=== PATIENT | male | born 1995 | race Caucasian/White ===

== ENCOUNTER 2017-04-03 04:24 | Emergency (ER) | payer BC, OTHER ==
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
[2017-04-03 05:07] LABS: Basophils # (A) 0.1 k/uL (0-0.2); Basophils % (A) 1 %; CH 32.3; CHCM 35.1; Eosinophils # (A) 0.4 k/uL (0-0.7); Eosinophils % (A) 3 %; HCT 46.8 % (39.0-53.0); HDW 2.17; HGB 15.8 gm/dL (13.0-17.5); Luc # (Auto) 0.23; Luc % (Auto) 2; Lymphocytes # (A) 2.7 k/uL (1.0-4.8); Lymphocytes % (A) 17 %; MCH 31.2 pg (25.0-35.0); MCHC 33.8 g/dL (31.0-37.0); MCV 92.4 fL (80.0-100.0); Mean Platelet Volume 6.8; Monocytes # (A) 0.9 k/uL (0-1.0); Monocytes % (A) 6 %; Neutrophils # (A) 11.1 k/uL (1.3-7.7); Neutrophils % (A) 72 %; RBC 5.07 m/uL (4.30-5.90); RDW 12.4 % (11.5-15.5); WBC 15.4 k/uL (3.8-10.6)
[2017-04-03 05:18] LABS: Amorphous Sediment,Urine Few /hpf; Appearance,Urine Cloudy (Clear); Bilirubin,Urine Negative (Negative); Glucose,Urine (UA) Negative (Negative); Ketones,Urine Negative (Negative); Leukocyte Esterase,Urine Negative (Negative); Nitrite,Urine Negative (Negative); Particle Count 2369; Protein,Urine Negative (Negative); Specific Gravity,Urine 1.006 (1.001-1.035); UA Billing (MACRO vs. MICRO) MICRO; Urobilinogen,Urine <2.0 mg/dL (<2.0)
[2017-04-03 05:19] LABS: ALT 24 U/L (21-72); AST 23 U/L (17-59); Alcohol <10 mg/dL; Alkaline Phosphatase 82 U/L (38-126); Amylase 42 U/L (30-110); Anion Gap 13 mmol/L; Blood Urea Nitrogen 17 mg/dL (9-20); Calcium 9.5 mg/dL (8.4-10.2); Carbon Dioxide 24 mmol/L (22-30); Chloride 105 mmol/L (98-107); Glucose 103 mg/dL (74-99); Magnesium 1.9 mg/dL (1.6-2.3); Non-African American GFR(MDRD) >60 (>60 ml/min/1.73 sqM); Potassium 3.4 mmol/L (3.5-5.1); Sodium 142 mmol/L (137-145); Total Bilirubin 0.9 mg/dL (0.2-1.3); Total Protein 7.4 g/dL (6.3-8.2)
[2017-04-03 05:36] LABS: Creatine Kinase MB 0.7 ng/mL (0.0-2.4)
--- NOTE | 2017-04-03 06:16 | XR ---
EXAM: XR Chest, 2 Views CLINICAL HISTORY: Reason: cough TECHNIQUE: Frontal and lateral views of the chest. COMPARISON: No relevant prior studies available. FINDINGS: Lungs: Unremarkable. No consolidation. Pleural space: Unremarkable. No pneumothorax. Heart: Unremarkable. No cardiomegaly. Mediastinum: Unremarkable. Bones/joints: Unremarkable. IMPRESSION: Normal chest x-rays.
--- NOTE | 2017-04-03 06:35 | CT ---
EXAM: CT Head Without Intravenous Contrast CLINICAL HISTORY: Reason: Pain TECHNIQUE: Axial computed tomography images of the head/brain without intravenous contrast. CTDI is 60.30 mGy and DLP is 1126.50 mGy-cm. This CT exam was performed using one or more of the following dose reduction techniques: automated exposure control, adjustment of the mA and/or kV according to patient size, and/or use of iterative reconstruction technique. COMPARISON: CT head 06/01/2015. FINDINGS: Brain: Unremarkable. No acute hemorrhage. Brainstem: 13 mm hypoattenuation in the maykel felt to be related to skull based artifact. However, given somewhat defined round appearance on sagittal series 7 image 30, consider follow-up MRI to exclude a real finding. Mass effect: No midline shift, herniation, or hydrocephalus. Bones/joints: Unremarkable. Soft tissues: Unremarkable. Sinuses: Unremarkable as visualized. No acute sinusitis. Mastoid air cells: Unremarkable as visualized. No mastoid effusion. IMPRESSION: 13 mm hypoattenuation in the maykel felt to be related to skull based artifact. However, given somewhat defined round appearance on sagittal series 7 image 30, consider follow-up MRI to exclude a real finding. Otherwise, no acute intracranial abnormality.
[2017-04-03 14:00] VITALS: RESP 18
[2017-04-03 14:11] LABS: Basophils # (A) 0.1 k/uL (0-0.2); Basophils % (A) 1 %; CH 31.7; CHCM 35.3; Eosinophils # (A) 0.5 k/uL (0-0.7); Eosinophils % (A) 5 %; HCT 43.5 % (39.0-53.0); HDW 2.25; HGB 15.7 gm/dL (13.0-17.5); Luc # (Auto) 0.17; Luc % (Auto) 2; Lymphocytes # (A) 2.5 k/uL (1.0-4.8); Lymphocytes % (A) 27 %; MCH 32.5 pg (25.0-35.0); MCV 90.3 fL (80.0-100.0); Mean Platelet Volume 6.9; Monocytes # (A) 0.6 k/uL (0-1.0); Monocytes % (A) 7 %; Neutrophils # (A) 5.3 k/uL (1.3-7.7); Neutrophils % (A) 58 %; RBC 4.82 m/uL (4.30-5.90); RDW 12.1 % (11.5-15.5); WBC 9.1 k/uL (3.8-10.6); WBC (Perox) 9.35
[2017-04-03 18:55] VITALS: BP 116/73; PULSE 77; TEMP 98.1
== END 2017-04-03 18:56 ==
LOC: EC 04:24
DX: F23 Brief psychotic disorder (principal); F22 Delusional disorders; R20.0 Anesthesia of skin; F17.210 Nicotine dependence, cigarettes, uncomplicated; Z88.5 Allergy status to narcotic agent
CPT/HCPCS: 36415; 70450; 71020; 80053; 80306; 80320; 81001; 82150; 82550; 82553; 83690; 83735; 84443; 85025; 99285

== ENCOUNTER → 2017-06-30 | Outpatient (CLI) | payer OTHER ==
[2017-06-30 08:11] LABS: Basophils # (A) 0.1 k/uL (0-0.2); Basophils % (A) 1 %; CH 31.4; CHCM 34.1; Eosinophils # (A) 0.2 k/uL (0-0.7); Eosinophils % (A) 3 %; HCT 44.4 % (39.0-53.0); HDW 2.24; HGB 15.4 gm/dL (13.0-17.5); Luc # (Auto) 0.11; Luc % (Auto) 2; Lymphocytes # (A) 2.5 k/uL (1.0-4.8); Lymphocytes % (A) 39 %; MCH 31.9 pg (25.0-35.0); MCHC 34.6 g/dL (31.0-37.0); MCV 92.4 fL (80.0-100.0); Mean Platelet Volume 6.7; Monocytes # (A) 0.5 k/uL (0-1.0); Monocytes % (A) 7 %; Neutrophils # (A) 3.2 k/uL (1.3-7.7); Neutrophils % (A) 49 %; RBC 4.81 m/uL (4.30-5.90); RDW 12.9 % (11.5-15.5); WBC 6.5 k/uL (3.8-10.6); WBC (Perox) 6.64
[2017-06-30 09:03] LABS: ALT 36 U/L (21-72); AST 21 U/L (17-59); Alkaline Phosphatase 71 U/L (38-126); Anion Gap 10 mmol/L; Blood Urea Nitrogen 17 mg/dL (9-20); Carbon Dioxide 22 mmol/L (22-30); Chloride 110 mmol/L (98-107); Non-African American GFR(MDRD) >60 (>60 ml/min/1.73 sqM); Potassium 4.3 mmol/L (3.5-5.1); Sodium 142 mmol/L (137-145)
== END | disposition home or self-care (01) ==
LOC: LABWHC1 07:50
PROVIDERS: ATTEND Psychiatry & Neurology Psychiatry
DX: F23 Brief psychotic disorder (principal)
CPT/HCPCS: 36415; 80051; 80164; 82565; 84075; 84450; 84460; 84520; 85025

== ENCOUNTER 2018-06-08 04:19 | Emergency (ER) | payer SELFPAY ==
[2018-06-08] MEDS ORDERED: DIPH,PERTUS(ACELL)TETVAC-LF 0.5 ML VIAL IM ONE (04:43)
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
--- NOTE | 2018-06-08 05:38 | XR ---
EXAM: XR Left Foot Complete, 3 or More Views CLINICAL HISTORY: ITS.REASON XR Reason: Pain TECHNIQUE: Frontal, lateral and oblique views of the left foot. COMPARISON: No relevant prior studies available. FINDINGS/IMPRESSION: No acute fracture or dislocation. Suspected soft tissue injury. Subtle, small densities in the soft tissues of the plantar aspect of the foot at the level of the anterior calcaneus. This could be artifact or possibly calcification. Correlate for tiny foreign bodies.
[2018-06-08 06:18] LABS: Amphetamine Screen,Urine Detected (NotDetected); Barbiturate Screen,Urine Not Detected (NotDetected); Benzodiazepines Screen,Urine Detected (NotDetected); Cocaine Screen,Urine Not Detected (NotDetected); Methadone Screen, Urine Not Detected (NotDetected); Opiate Screen,Urine Not Detected (NotDetected); Oxycodone Screen, Urine Not Detected (NotDetected); Phencyclidine Screen,Urine Not Detected (NotDetected); Tricyclic Antidepressant,Urine Not Detected (NotDetected); Urn Cannabinoid Scrn Detected (NotDetected)
[2018-06-08 07:03] VITALS: BP 118/84; PULSE 82; RESP 18; TEMP 98
== END 2018-06-08 07:12 | disposition home or self-care (01) ==
LOC: EC 04:19
DX: S90.812A Abrasion, left foot, initial encounter (principal); F31.9 Bipolar disorder, unspecified; F90.9 Attention-deficit hyperactivity disorder, unspecified type; F17.200 Nicotine dependence, unspecified, uncomplicated; Z23 Encounter for immunization; Z79.899 Other long term (current) drug therapy; Z88.5 Allergy status to narcotic agent; W26.8XXA Contact with other sharp object(s), not elsewhere classified, initial encounter
CPT/HCPCS: 80306; 82075; 90471; 90715; 99284

== ENCOUNTER 2018-06-08 09:33 | Inpatient (IN) | payer OTHER ==
--- NOTE | 2018-06-08 10:02 | ED ---
General Adult HPI - General Chief complaint: Psychiatric Symptoms Stated complaint: mental health Time Seen by Provider: 06/08/18 09:35 Source: patient, RN notes reviewed Mode of arrival: ambulatory Limitations: no limitations - History of Present Illness Initial comments: This is a 23-year-old male who presents emergency Department because his mother told him to come back to the emergency department. Patient's states she was here last night and discharged about 2 hours ago and went home and got into an argument with his mother and she told him he needs to go back to the hospital so he did. Patient tells me he has no complaints he denies being suicidal or homicidal he denies feeling unsafe. Patient states he has no headache he denies numbness weakness. Patient denies any chest pain palpitations difficulty breathing or shortness of breath. Patient denies any abdominal pain patient denies any nausea vomiting diarrhea. Patient denies any headache. Patient states all he needs is sleep. - Related Data Home Medications Medication Instructions Recorded Confirmed Dextroamphetamine/Amphetamine 20 mg PO QAM 06/08/18 06/08/18 [Adderall Xr] buPROPion HCL [Wellbutrin Sr] 150 mg PO BID 06/08/18 06/08/18 Allergies Allergy/AdvReac Type Severity Reaction Status Date / Time codeine AdvReac Nausea & Verified 06/08/18 09:36 Vomiting Review of Systems ROS Statement: Those systems with pertinent positive or pertinent negative responses have been documented in the HPI. ROS Other: All systems not noted in ROS Statement are negative. Past Medical History Past Medical History: No Reported History History of Any Multi-Drug Resistant Organisms: None Reported Past Surgical History: No Surgical Hx Reported Past Psychological History: ADD/ADHD Smoking Status: Current every day smoker Past Alcohol Use History: Occasional Past Drug Use History: None Reported General Exam - General Exam Comments Initial Comments: GENERAL: Patient is well-developed and well-nourished. Patient is nontoxic and well- hydrated and is in no acute distress. ENT: Neck is soft and supple. No significant lymphadenopathy is noted. Oropharynx is clear. Moist mucous membranes. Neck has full range of motion without eliciting any pain. EYES: The sclera were anicteric and conjunctiva were pink and moist. Extraocular movements were intact and pupils were equal round and reactive to light. Eyelids were unremarkable. PULMONARY: Unlabored respirations. Good breath sounds bilaterally. No audible rales rhonchi or wheezing was noted. CARDIOVASCULAR: There is a regular rate and rhythm without any murmurs gallops or rubs. ABDOMEN: Soft and nontender with normal bowel sounds. SKIN: Skin is clear with no lesions or rashes and otherwise unremarkable. NEUROLOGIC: Patient is alert and oriented x3. Cranial nerves II through XII are grossly intact. Motor and sensory are also intact. Normal speech, volume and content. Symmetrical smile. MUSCULOSKELETAL: Normal extremities with adequate strength and full range of motion. LYMPHATICS: No significant lymphadenopathy is noted PSYCHIATRIC: Patient does have a flat affect but he denies suicidal or homicidal ideations. Patient states he feels completely safe leaving and going home Limitations: no limitations Course Vital Signs 06/08/18 09:35 Temperature 98.1 F Pulse Rate 75 Respiratory 20 Rate Blood Pressure 143/92 O2 Sat by Pulse 100 Oximetry Medical Decision Making - Medical Decision Making I had [facility] reevaluate the patient and when they spoke with them he was preoccupied with religious he was paranoid and hearing voices. They decided to admit the patient. I certified the patient to be admitted. Disposition Clinical Impression: Psychosis Disposition: ADMITTED IP TO THIS HOSP Referrals: Charu Jimenez MD [Primary Care Provider] - 1-2 days Time of Disposition: 12:48
[2018-06-08] MEDS ORDERED: LORazepam 2 MG/ML INJ IM STA (14:45)
[2018-06-08] MEDS ORDERED: ZIPRASIDONE 20 MG VIAL IM PRN (14:51)
[2018-06-08] MEDS ORDERED: MAGNESIUM HYDROXIDE 2,400 MG/10 ML CUP PO PRN (14:51)
[2018-06-08] MEDS ORDERED: LORazepam 2 MG/ML INJ IM PRN (14:54)
[2018-06-08] MEDS ORDERED: MAG HYDROX/AL HYDROX/SIMETH 30 ML CUP PO PRN (14:57)
[2018-06-08] MEDS ORDERED: LORazepam 1 MG TAB PO PRN (15:02)
[2018-06-08] MEDS ORDERED: ACETAMINOPHEN TAB 325 MG TAB PO PRN (15:05)
[2018-06-08] MEDS ORDERED: LORazepam 1 MG TAB PO SCH (21:00)
[2018-06-09 08:27] LABS: Basophils % (A) 0 %; Eosinophils % (A) 1 %; HCT 48.5 % (39.0-53.0); HGB 16.1 gm/dL (13.0-17.5); Lymphocytes # (A) 2.1 k/uL (1.0-4.8); Lymphocytes % (A) 26 %; MCH 30.1 pg (25.0-35.0); MCHC 33.1 g/dL (31.0-37.0); MCV 90.9 fL (80.0-100.0); Mean Platelet Volume 7.1; Monocytes # (A) 0.7 k/uL (0-1.0); Monocytes % (A) 8 %; Neutrophils % (A) 62 %; Platelet Count 255 k/uL (150-450); RBC 5.34 m/uL (4.30-5.90); RDW 12.7 % (11.5-15.5); WBC 8.1 k/uL (3.8-10.6)
[2018-06-09 08:41] LABS: ALT 32 U/L (21-72); AST 34 U/L (17-59); Albumin 4.7 g/dL (3.5-5.0); Alkaline Phosphatase 74 U/L (38-126); Anion Gap 10 mmol/L; Blood Urea Nitrogen 10 mg/dL (9-20); Calcium 10.1 mg/dL (8.4-10.2); Carbon Dioxide 25 mmol/L (22-30); Chloride 108 mmol/L (98-107); Cholesterol 160 mg/dL (<200); Glucose 99 mg/dL (74-99); HDL Cholesterol 43 mg/dL (40-60); LDL Cholesterol,Calculated 102 mg/dL (0-99); Potassium 4.4 mmol/L (3.5-5.1); Sodium 143 mmol/L (137-145); Total Bilirubin 0.9 mg/dL (0.2-1.3); Total Protein 7.5 g/dL (6.3-8.2); Triglycerides 76 mg/dL (<150)
[2018-06-09] MEDS ORDERED: NICOTINE 14MG/24HR PATCH TRANSDERM SCH (09:00)
[2018-06-09] MEDS: NICOTINE POLACRILEX 2 MG GUM BUCCAL PRN (11:08)
[2018-06-09] MEDS: ARIPiprazole 10 MG TAB PO SCH (11:08)
--- NOTE | 2018-06-09 11:17 | P.HP ---
Psychiatric H&P - . History & Physical: Allergies Allergy/AdvReac Type Severity Reaction Status Date / Time codeine AdvReac Nausea & Verified 06/08/18 09:36 Vomiting Vital Signs Temp 98.6 F 06/09/18 01:00 Pulse 95 06/09/18 01:00 Resp 16 06/09/18 01:00 BP 130/81 06/09/18 01:00 Pulse Ox 98 06/08/18 14:53 Intake & Output 06/08/18 06/09/18 06/09/18 18:59 06:59 18:59 Weight 77.111 kg Laboratory Last Values WBC 8.1 k/uL (3.8-10.6) 06/09/18 08:06 RBC 5.34 m/uL (4.30-5.90) 06/09/18 08:06 Hgb 16.1 gm/dL (13.0-17.5) 06/09/18 08:06 Hct 48.5 % (39.0-53.0) 06/09/18 08:06 MCV 90.9 fL (80.0-100.0) 06/09/18 08:06 MCH 30.1 pg (25.0-35.0) 06/09/18 08:06 MCHC 33.1 g/dL (31.0-37.0) 06/09/18 08:06 RDW 12.7 % (11.5-15.5) 06/09/18 08:06 Plt Count 255 k/uL (150-450) 06/09/18 08:06 Neutrophils % 62 % 06/09/18 08:06 Lymphocytes % 26 % 06/09/18 08:06 Monocytes % 8 % 06/09/18 08:06 Eosinophils % 1 % 06/09/18 08:06 Basophils % 0 % 06/09/18 08:06 Neutrophils # 5.0 k/uL (1.3-7.7) 06/09/18 08:06 Lymphocytes # 2.1 k/uL (1.0-4.8) 06/09/18 08:06 Monocytes # 0.7 k/uL (0-1.0) 06/09/18 08:06 Eosinophils # 0.0 k/uL (0-0.7) 06/09/18 08:06 Basophils # 0.0 k/uL (0-0.2) 06/09/18 08:06 Sodium 143 mmol/L (137-145) 06/09/18 08:06 Potassium 4.4 mmol/L (3.5-5.1) 06/09/18 08:06 Chloride 108 mmol/L (98-107) H 06/09/18 08:06 Carbon Dioxide 25 mmol/L (22-30) 06/09/18 08:06 Anion Gap 10 mmol/L 06/09/18 08:06 BUN 10 mg/dL (9-20) 06/09/18 08:06 Creatinine 0.74 mg/dL (0.66-1.25) 06/09/18 08:06 Est GFR (CKD-EPI)AfAm >90 (>60 ml/min/1.73 sqM) 06/09/18 08:06 Est GFR (CKD-EPI)NonAf >90 (>60 ml/min/1.73 sqM) 06/09/18 08:06 Glucose 99 mg/dL (74-99) 06/09/18 08:06 Calcium 10.1 mg/dL (8.4-10.2) 06/09/18 08:06 Total Bilirubin 0.9 mg/dL (0.2-1.3) 06/09/18 08:06 AST 34 U/L (17-59) 06/09/18 08:06 ALT 32 U/L (21-72) 06/09/18 08:06 Alkaline Phosphatase 74 U/L (38-126) 06/09/18 08:06 Total Protein 7.5 g/dL (6.3-8.2) 06/09/18 08:06 Albumin 4.7 g/dL (3.5-5.0) 06/09/18 08:06 Triglycerides 76 mg/dL (<150) 06/09/18 08:06 Cholesterol 160 mg/dL (<200) 06/09/18 08:06 LDL Cholesterol, Calc 102 mg/dL (0-99) H 06/09/18 08:06 HDL Cholesterol 43 mg/dL (40-60) 06/09/18 08:06 TSH 1.120 mIU/L (0.465-4.680) 06/09/18 08:06 06/09/18 11:05 IDENTIFYING DATA: This patient is a 23-year-old single male who was admitted to the mental health unit through the emergency room for acute symptoms of psychosis. HPI: The patient presents with a petition completed by his mother stating "paranoid no sleep hearing voices against him distractive verbally aggressive smashing things and home found missing from first visit from hospital walk to [place]/jessica, found my son suggested bring him back to hospital." In reviewing the psychiatric nurses documentation the patient's endorsed auditory hallucinations and reported that he felt his life had been sucked away. With me this morning the patient is more guarded and less forthright in describing these symptoms. Today he states he does not experience auditory hallucinations and never has. He endorses visual hallucinations in the forms of "patterns and colors". He states that he will have an unsettled feeling that people are messing with him or trying to do something to him. His mother states that he went to the ER because he thought he had been shot. He describes poor sleep his mother states that he has not slept in 3 days. She states that when he has these episodes he will become more psychotic appearing. He describes his appetite as being low but improving. He is reporting no suicidal or homicidal ideation intent or plan. He reports no frequent symptoms of anxiety and no panic attacks although he states when he came to the ER he felt like his chest was hurting. He does feel as though he has had episodes that are at least hypomanic. There are firearms in the home. PAST PSYCHIATRIC HISTORY: Since his second psychiatric admission the first was at [facility] approximately one year ago and he was there for approximate 2 weeks. He was placed on Prolixin, Depakote, Cogentin. He states he felt terrible on the Prolixin and discontinued it after discharge and his mother agrees it was causing several side effects. He has gotten an Adderall prescription from his primary care physician. He was previously on Wellbutrin. No history of suicide attempts but he states he did have suicidal thoughts while in during the side effects of Prolixin. PMH: None reported ALLERGIES: Codeine MEDICATIONS: As above CHEMICAL DEPENDENCY HISTORY: He reports using alcohol 1-2 drinks every other day and heavier on the weekend, he uses marijuana daily, he reports no other use of illicit drugs. He was in rehab once after an OWI charge FAMILY PSYCHIATRIC HISTORY: His maternal uncle was known to have schizophrenia, his mother is known to have bipolar disorder, his younger brother has autism and ADHD, no suicides in the family FAMILY CHEMICAL DEPENDENCY HISTORY: None reported SOCIAL HISTORY: The patient is 23 years old a single he has no children he resides with his mother and younger brother. He does have a 21-year-old sister who has moved out of the home. 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 No history of service. Legal history he was arrested for an OWI when he was 20 years old, abuse history none. Hobbies include hunting fishing and playing his guitar. MENTAL STATUS EXAM: The patient is a 23-year-old male appearing his stated age, he has longer hair that he has pulled back. He is dressed in his own clothing. He is cooperative and easily directable. He maintains a constricted to blunted affect throughout the session with little change in affect. He does have spontaneous speech. 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 He reports no suicidal or homicidal ideation intent or plan. He endorses no auditory hallucinations currently but did last evening. He endorses recent visual hallucinations. He does still have a feeling as though people are "messing with me" but doesn't specify who or how. He demonstrates no verbal or physical aggressiveness. He demonstrates no abnormal involuntary movements. He is oriented to person place and date. He is able to name the days the week backwards. He demonstrates no tangential thinking loose associations or flight of ideas he does not appear manic at this time. STRENGTHS/WEAKNESSES: Strengths: Housing, support from family, reported employment weaknesses current psychiatric symptoms with no outpatient care INTELLECTUAL FUNCTIONING: Average IMPRESSIONS: [] 1. Psychosis unspecified, rule out schizoaffective disorder bipolar type versus bipolar 1 disorder manic with psychosis, cannabis use disorder. PLAN: The patient's been admitted to the mental health unit for acute symptoms of psychosis. I did complete a second clinical certificate. We reviewed his presenting symptoms and treatment options. I was able to speak with the patient 's mother with his expressed permission. We decided to initiate Abilify 10 mg daily with a plan of titrating the dose further if needed. He will be seen by social work to complete a psychosocial assessment he will be seen by internal medicine for routine history and physical exam. We will monitor him for safety and encourage his full participation in the milieu.
--- NOTE | 2018-06-09 14:58 | P.CONS ---
History of Present Illness - Reason for Consult Medical clearance - History of Present Illness 23-year-old pleasant gentleman admitted for acute psychosis denied any fever chills nausea vomiting chest pain area. Patient says he smokes 3 packs of cigarettes per day chest exam is clear. Denied any IV drug use does use marijuana. Denied any alcohol abuse. Review of Systems REVIEW OF SYSTEMS: CONSTITUTIONAL: No fever, no malaise, no fatigue. HEENT: No recent visual problems or hearing problems. Denied any sore throat. CARDIOVASCULAR: No chest pain, orthopnea, PND, no palpitations, no syncope. PULMONARY: No shortness of breath, no cough, no hemoptysis. GASTROINTESTINAL: No diarrhea, no nausea, no vomiting, no abdominal pain. Normoactive bowel sounds. NEUROLOGICAL: No headaches, no weakness, no numbness. HEMATOLOGICAL: Denies any bleeding or petechiae. GENITOURINARY: Denies any burning micturition, frequency, or urgency. MUSCULOSKELETAL/RHEUMATOLOGICAL: Denies any joint pain, swelling, or any muscle pain. ENDOCRINE: Denies any polyuria or polydipsia. The rest of the 14-point review of systems is negative. Past Medical History Past Medical History: No Reported History History of Any Multi-Drug Resistant Organisms: None Reported Past Surgical History: No Surgical Hx Reported Past Psychological History: ADD/ADHD Smoking Status: Current every day smoker Past Alcohol Use History: Occasional Past Drug Use History: None Reported Medications and Allergies Home Medications Medication Instructions Recorded Confirmed Type Dextroamphetamine/Amphetamine 20 mg PO QAM 06/08/18 06/08/18 History [Adderall Xr] buPROPion HCL [Wellbutrin Sr] 150 mg PO BID 06/08/18 06/08/18 History Allergies Allergy/AdvReac Type Severity Reaction Status Date / Time codeine AdvReac Nausea & Verified 06/08/18 09:36 Vomiting Physical Exam Vitals: Vital Signs Temp Pulse Resp BP 06/09/18 01:00 98.6 F 95 16 130/81 06/08/18 15:31 98.4 F 66 18 135/79 PHYSICAL EXAMINATION: GENERAL: The patient is alert and oriented x3, not in any acute distress. Well developed, well nourished. HEENT: Pupils are round and equally reacting to light. EOMI. No scleral icterus. No conjunctival pallor. Normocephalic, atraumatic. No pharyngeal erythema. No thyromegaly. CARDIOVASCULAR: S1 and S2 present. No murmurs, rubs, or gallops. PULMONARY: Chest is clear to auscultation, no wheezing or crackles. ABDOMEN: Soft, nontender, nondistended, normoactive bowel sounds. No palpable organomegaly. MUSCULOSKELETAL: No joint swelling or deformity. EXTREMITIES: No cyanosis, clubbing, or pedal edema. NEUROLOGICAL: Gross neurological examination did not reveal any focal deficits. SKIN: No rashes. Results CBC & Chem 7: 06/09/18 08:06 06/09/18 08:06 Labs: Abnormal Lab Results - Last 24 Hours (Table) 06/09/18 Range/Units 08:06 Chloride 108 H (98-107) mmol/L LDL Cholesterol, Calc 102 H (0-99) mg/dL Assessment and Plan Plan: -Acute psychosis: Management as per primary service -Nicotine abuse and marijuana use: Counseling was provided Patient is medically stable we'll sign off at this point of time was back if needed.
[2018-06-09 17:07] LABS: Appearance,Urine Clear (Clear); Bilirubin,Urine Negative (Negative); Blood,Urine Negative (Negative); Color,Urine Colorless; Glucose,Urine (UA) Negative (Negative); Ketones,Urine Negative (Negative); Leukocyte Esterase,Urine Negative (Negative); Nitrite,Urine Negative (Negative); PH, Urine 6.5 (5.0-8.0); Protein,Urine Negative (Negative); Specific Gravity,Urine 1.002 (1.001-1.035); Urobilinogen,Urine <2.0 mg/dL (<2.0)
[2018-06-09 19:42] LABS: Hemoglobin A1C 4.8 % (4.0-6.0)
[2018-06-09] MEDS: traZODone HCL 100 MG TAB PO PRN (21:10)
[2018-06-09] MEDS: MAG HYDROX/AL HYDROX/SIMETH 30 ML CUP PO PRN (21:43)
[2018-06-10] MEDS: NICOTINE POLACRILEX 2 MG GUM BUCCAL PRN ×2 (08:46→20:44)
[2018-06-10] MEDS: ARIPiprazole 10 MG TAB PO SCH (08:46)
--- NOTE | 2018-06-10 11:20 | P.PN ---
Progress Note - Text Interval history: The patient is found in his room he follows me to an interview room. He reports that he slept well last night with use of trazodone and estimates 6-8 hours. He states his appetite is not great but he did eat. He is primarily focused on wanting to be discharged. He reports feelings of grief and is briefly tearful in discussing the of his father and today would've been his father's birthday. The patient has been attending groups he demonstrates no agitated behavior while here per staff. He did meet with his court appointed attorney general and signed a deferral agreement for treatment. Mental status exam: The patient is alert he is dressed in his own clothing he has long curly hair, he seated calmly. Eye contact is appropriate affect is bland consistently with the exception of brief tearfulness. He states his mood is "alright". He denies having any suicidal or homicidal ideation intent or plan. He denies having any auditory or visual hallucinations or specific delusions. Again he could be underreporting symptoms to facilitate a discharge. Although he denies having any symptoms there is still a bizarre quality about his affect at times and at other times he does appear to be preoccupied. He is able to provide spontaneous speech he is able to provide some linear answers. He demonstrates no tangential thinking loose associations or flight of ideas. Insight and judgment limited. He remains oriented to person place and date. He demonstrates no abnormal involuntary movements he demonstrates no verbal or physical aggressiveness. Plan: The patient will continue on the Abilify 10 mg daily we will consider titrating further if needed. We will monitor him for safety and encourage his full participation in the milieu. He anticipates visiting with his mother this evening and we will await the outcome of that visit. He requires continued hospitalization to continue evaluating and treating his symptoms of psychosis.
[2018-06-10] MEDS: traZODone HCL 100 MG TAB PO PRN (22:21)
[2018-06-11] MEDS: ARIPiprazole 10 MG TAB PO SCH (08:29)
--- NOTE | 2018-06-11 10:17 | P.PN ---
Progress Note - Text Interval history: The patient is found in the library. He reports that he had a visit from his cousin and his mother last evening. He states overall the visit was good but they discussed his symptoms/behavior prior to this admission. He elaborates on some of his behaviors prior to being admitted. He reports becoming angry and smashing things at home including a guitar. He is not able to specify why he was angry but just stated "I was trying to figure out what was going on with me". He expresses some remorse regarding those actions. We discussed his medication his questions were answered. He is amenable to allowing me titrate the dose further. He states that he slept well last night but the trazodone dose may be too strong. We discussed taking the medication earlier in the evening as well. Mental status exam: The patient is alert he is seated calmly in the chair, he is dressed in his own clothing. His eye contact is appropriate he reports his mood is "bubbly". Speech is fluent non-pressured somewhat spontaneous. He continues to appear somewhat distracted during the conversation. He endorses no auditory or visual hallucinations. He indicates that he feels safe and has no paranoid or persecutory thoughts. Again it does appear that he is underreporting symptoms. He demonstrates no verbal or physical aggressiveness. He demonstrates no abnormal involuntary movements. Affect remains bland. Insight and judgment limited. He remains oriented to person place and date. Plan: The patient will continue on the Abilify we will titrate the dose to 15 mg daily. We will continue to monitor him for safety and encourage his continued participation in the milieu. Vital signs reviewed.
[2018-06-11] MEDS: NICOTINE POLACRILEX 2 MG GUM BUCCAL PRN (11:53)
[2018-06-11] MEDS: traZODone HCL 50 MG TAB PO PRN (21:05)
[2018-06-12] MEDS: NICOTINE POLACRILEX 2 MG GUM BUCCAL PRN (09:13)
[2018-06-12] MEDS: ARIPiprazole 15 MG TAB PO SCH (09:14)
--- NOTE | 2018-06-12 14:51 | P.PN ---
Progress Note - Text Progress Note Date: 06/12/18 Diagnosis: Unspecified psychotic disorder, rule out schizoaffective disorder bipolar type versus bipolar 1 disorder manic with psychosis, cannabis use disorder Interim History: I reviewed the medical record, interviewed the patient and discuss his treatment and treatment plan during team meeting. He denied specific problems or concerns. He denied side effects to the increased dose of Abilify (15 mg). He feels depressed but denied having thoughts of or suicide. He denied experiencing such psychotic symptoms as ideas reference, thought insertion, thought broadcasting, thought control or auditory and/or visual hallucinations. We reviewed the circumstances that led to this admission and the only problem that he can remember was feeling paranoid and having difficulty concentrating. Mental Status Exam: He presented as a casually groomed, tall, thin male with this reddish hair pulled back in a ponytail. He made eye contact and attended to the interview. He had no prominent physical abnormalities. He had a blunted facial expression. He was alert and oriented to person, place and time. He showed slight psychomotor retardation but no abnormal movements. He had a normal gait and station. His speech was spontaneous with normal rate, rhythm and volume. He had no articulation difficulties. His affect was blunted but stable and appropriate. He denied suicidal ideation or wishes. He denied homicidal ideation. He denied feeling hopeless, helpless or worthless. He ruminated about the circumstances that led to this hospitalization but did not express clear ideas reference, paranoid ideation or delusional thoughts. His thinking was abstract and associations were coherent, logical and goal directed. He did not express clang associations, perseverations or neologisms. He denied hallucinations and did not appear to be responding to internal stimuli. Plan: Continue inpatient psychiatric hospitalization. Continue Abilify 15 mg daily. Encourage continued participation in therapeutic groups and activities. Continue safety precautions. Evaluate clinical status response to treatment daily basis.
[2018-06-12] MEDS: traZODone HCL 50 MG TAB PO PRN (20:15)
[2018-06-13] MEDS: ARIPiprazole 15 MG TAB PO SCH (08:46)
[2018-06-13] MEDS: NICOTINE POLACRILEX 2 MG GUM BUCCAL PRN (09:34)
--- NOTE | 2018-06-13 21:34 | P.PN ---
Progress Note - Text Progress Note Date: 06/13/18 IDENTIFICATION DATA 23-year-old male with schizoaffective disorder admitted for acute symptoms of psychosis. INTERVAL HISTORY: He reports being complaint with his prescribed medication. Denies side effects. He reports medications help him to stabilize his moods. He denies current symptoms of psychosis. He reports good sleep and appetite. MENTAL STATUS EXAMINATION: Patient is 23 year old man appears in fair grooming and hygiene. speech and thought process are limited. mood is euthymic and affect flat. denies current auditory or visual hallucinations. denies paranoia. is alert and oriented X 4. insight and judgment are limited. denies current suicidal or homicidal ideations. ASSESSMENT AND PLAN: Continue current treatment.
[2018-06-13] MEDS: traZODone HCL 50 MG TAB PO PRN (22:39)
[2018-06-14] MEDS: MAG HYDROX/AL HYDROX/SIMETH 30 ML CUP PO PRN (01:27)
[2018-06-14] MEDS: ARIPiprazole 15 MG TAB PO SCH (08:17)
[2018-06-14] MEDS: NICOTINE POLACRILEX 2 MG GUM BUCCAL PRN (08:36)
--- NOTE | 2018-06-14 14:48 | P.PN ---
Progress Note - Text Progress Note Date: 06/14/18 23-year-old male with schizoaffective disorder admitted for acute symptoms of psychosis. INTERVAL HISTORY: When asked how he is doing , he stated Blah . When asked to explain further he stated he does not know how to explain. When asked if he is feeling sad or hopeless, he stated yes and no. He reports abilify helps him stabilize his moods. He reports being complaint with his prescribed medication. Denies side effects He denies current symptoms of psychosis. He reports good sleep and appetite. He reports participating in unit groups. No behavior problems reported. MENTAL STATUS EXAMINATION: Patient is 23 year old man appears in fair grooming and hygiene. speech and thought process are limited. mood is euthymic and affect is flat. denies current auditory or visual hallucinations. denies paranoia. is alert and oriented X 4. insight and judgment are limited. denies current suicidal or homicidal ideations. ASSESSMENT AND PLAN: Will increase the dose of abilfy to 20mg po qday.
[2018-06-14] MEDS: traZODone HCL 50 MG TAB PO PRN (21:18)
--- NOTE | 2018-06-15 10:34 | P.PN ---
Progress Note - Text Interval history: The patient is found in the hallway he follows me to an interview room. He reports that his moods improving. His Abilify was titrated to 20 mg just yesterday [facility]. He has no questions or concerns regarding his medication. He is participating in a support meeting involving his mother this morning. Mental status exam: The patient is alert he is dressed in his own clothing. His hair is pulled back he has shaved his roberts. He reports his mood is improving. He denies having any suicidal or homicidal ideation intent or plan. He is reporting no auditory or visual hallucinations he is endorsing no specific delusions. He demonstrates no abnormal involuntary movements, he demonstrates no verbal or physical aggressiveness. Insight and judgment improving. Affect is constricted as the session progressed he demonstrated a small range of expression. Plan: The patient will continue on his current psychotropic medication. We will await the results of his support meeting today. We will evaluate how he is responding to the Abilify at the 20 mg dose. Consider discharging him tomorrow if clinically appropriate.
[2018-06-15] MEDS: NICOTINE POLACRILEX 2 MG GUM BUCCAL PRN ×3 (12:30→20:15)
[2018-06-15] MEDS: traZODone HCL 50 MG TAB PO PRN (20:55)
[2018-06-16] MEDS: NICOTINE POLACRILEX 2 MG GUM BUCCAL PRN ×2 (00:27→08:24)
[2018-06-16 06:32] VITALS: BP 122/80; PULSE 65; RESP 16; TEMP 97.7
--- NOTE | 2018-06-16 09:38 | P.DS ---
Providers Date of admission: 06/08/18 14:46 Expected date of discharge: 06/16/18 Attending physician: Toby Francis Consults: 06/08/18 14:51 Consult Physician Routine Consulting Provider: Armaan Ortega Consult Reason/Comments: H&P for mental health Do you want consulting provider notified?: Yes Primary care physician: Charu Jimenez - Discharge Diagnosis(es) (1) Unspecified psychosis Current Visit: Yes Status: Acute Priority: High (2) Cannabis use disorder, mild, abuse Current Visit: Yes Status: Acute Priority: Medium Hospital Course: Brief summary of admission note: This patient is a 23-year-old single male who was admitted to the mental health unit through the emergency room for acute symptoms of psychosis. The patient was petition by his mother for demonstrating paranoid and aggressive behavior. In the emergency room the patient had endorsed experiencing auditory hallucinations. He endorsed visual hallucinations with his initial visit on the mental health unit. He had an unsettling feeling that people were "messing with me". Reportedly had not slept in 3 days and was becoming more agitated. For full history please refer to my psychiatric evaluation dated 06/01/2018. Summary of hospital course: The patient was admitted to the mental health unit on a petition and clinical certificate. I did complete a second clinical certificate we reviewed the patient's presenting symptoms and medication options. We decided to initiate Abilify and titrated the dose ultimately to 20 mg daily. The patient did attend groups he demonstrated no agitated behavior. He did meet with an bankruptcy attorney as part of a deferral conference and he signed the deferral agreement. The patient participated in a support meeting involving his mother yesterday. Social work notes from that interaction were reviewed. The patient did process some of his grief reaction regarding his father's recent . His symptoms of psychosis have stabilized. And he is appropriate for transition outpatient care. He was seen by internal medicine for routine history and physical exam. Mental status exam: The patient is alert he is dressed in his own clothing hygiene grooming are adequate. He has long curly hair. Eye contact is good speech is fluent spontaneous nonpressured. He demonstrates an appropriate range of affect during the conversation. He reports no hopelessness thinking no suicidal or homicidal ideation intent or plan. He is endorsing no paranoid or persecutory thinking at this time. He is seated calmly and is demonstrating no evidence of psychosis. Thought process is linear he demonstrates no tangential thinking loose associations or flight of ideas. He does not appear hypomanic or manic. He demonstrates no verbal or physical aggressiveness he demonstrates no abnormal involuntary movements. Insight and judgment have improved. He remains oriented to person place and date. Impressions 1. Psychosis unspecified, rule out schizoaffective disorder bipolar type versus bipolar 1 disorder manic with psychosis, cannabis use disorder 2. Grief reaction due to recent of father Plan: The patient will be discharged from the mental health unit today to return home with his family. He will continue on Abilify 20 mg daily. He will follow up with [facility] for outpatient services. He is instructed to abstain from any use of alcohol marijuana or any other illicit drug. He is not interested in participating in inpatient chemical dependency treatment regarding his cannabis use. This will be addressed further as an outpatient. There is no imminent safety risk he is appropriate for transition to outpatient care. He is instructed to return to the hospital for any acute safety concerns. Patient Condition at Discharge: Stable Plan - Discharge Summary New Discharge Prescriptions: New ARIPiprazole [Abilify] 20 mg PO DAILY #30 tab Nicotine Polacrilex [Nicorette] 2 mg BUCCAL Q2HR PRN #30 gum PRN Reason: Nicotine Cravings traZODone HCL [Desyrel] 50 mg PO HS PRN #30 tab PRN Reason: Insomnia Discontinued buPROPion HCL [Wellbutrin Sr] 150 mg PO BID Dextroamphetamine/Amphetamine [Adderall Xr] 20 mg PO QAM Discharge Medication List ARIPiprazole [Abilify] 20 mg PO DAILY #30 tab 06/16/18 [Rx] Nicotine Polacrilex [Nicorette] 2 mg BUCCAL Q2HR PRN #30 gum 06/16/18 [Rx] traZODone HCL [Desyrel] 50 mg PO HS PRN #30 tab 06/16/18 [Rx] Follow up Appointment(s)/Referral(s): Charu Jimenez MD [Primary Care Provider] - 1-2 days
== END 2018-06-16 13:05 | disposition home or self-care (01) | DRG 885 ==
LOC: EC 09:33 → 3MHU 14:46
PROVIDERS: ADMIT Psychiatry & Neurology Psychiatry; ATTEND Psychiatry & Neurology Psychiatry
DX: F29 Unspecified psychosis not due to a substance or known physiological condition (principal); F12.10 Cannabis abuse, uncomplicated; F17.210 Nicotine dependence, cigarettes, uncomplicated; F43.20 Adjustment disorder, unspecified; F90.9 Attention-deficit hyperactivity disorder, unspecified type; Z88.5 Allergy status to narcotic agent; Z81.8 Family history of other mental and behavioral disorders; Z79.899 Other long term (current) drug therapy; Z71.6 Tobacco abuse counseling; Z71.51 Drug abuse counseling and surveillance of drug abuser
CPT/HCPCS: 80053; 80061; 81003; 82075; 83036; 84443; 85025; 96372; 99285

== ENCOUNTER 2019-05-22 04:01 | Emergency (ER) | payer OTHER ==
[2019-05-22 07:15] VITALS: BP 132/86; PULSE 77; RESP 16; TEMP 97.1
--- NOTE | 2019-05-22 07:23 | ED ---
Psych HPI <Mark Bae - Last Filed: 05/22/19 08:51> - General Source: patient, police Mode of arrival: ambulatory <Debbi Irizarry - Last Filed: 05/23/19 02:02> - General Chief Complaint: Psychiatric Symptoms Stated Complaint: Petition Time Seen by Provider: 05/22/19 04:40 - History of Present Illness Initial Comments: Robert is a 23-year-old male who is brought to the ER today by blunt force met with a court ordered petition. Further dictation the patient is been very erratic and violent he's been noncompliant with medications. Upon arrival patient states that he has not slept in a number of days. Patient states that that is why he came to the ER. Patient is aware that he has been petition by the court. When asked why patient just stares at me and does not answer. When asked if he has become violent patient does not his head but does not elaborate. When asked if he has any complaints patient does state that he is hungry but ALLERGIES eating is feeling better (Debbi Irizarry) - Related Data Home Medications Medication Instructions Recorded Confirmed ALPRAZolam [Xanax] 0.5 mg PO DAILY 05/22/19 05/22/19 Allergies Allergy/AdvReac Type Severity Reaction Status Date / Time codeine AdvReac Nausea & Verified 05/22/19 07:24 Vomiting Review of Systems ROS Other: All systems not noted in ROS Statement are negative. <Mark Bae - Last Filed: 05/22/19 08:51> ROS Other: All systems not noted in ROS Statement are negative. <Debbi Irizarry - Last Filed: 05/23/19 02:02> ROS Statement: Those systems with pertinent positive or pertinent negative responses have been documented in the HPI. Past Medical History Past Medical History: No Reported History History of Any Multi-Drug Resistant Organisms: None Reported Past Surgical History: No Surgical Hx Reported Past Psychological History: ADD/ADHD, Anxiety, Bipolar, Depression Smoking Status: Current every day smoker Past Alcohol Use History: Occasional Past Drug Use History: None Reported <Debbi Irizarry - Last Filed: 05/23/19 02:02> General Exam General appearance: alert, in no apparent distress Head exam: Present: atraumatic, normocephalic, normal inspection Eye exam: Present: normal appearance, PERRL, EOMI. Absent: scleral icterus, conjunctival injection, periorbital swelling ENT exam: Present: normal exam, mucous membranes moist Neck exam: Present: normal inspection. Absent: tenderness, meningismus, lymphadenopathy Respiratory exam: Present: normal lung sounds bilaterally. Absent: respiratory distress, wheezes, rales, rhonchi, stridor Cardiovascular Exam: Present: regular rate, normal rhythm, normal heart sounds. Absent: systolic murmur, diastolic murmur, rubs, gallop, clicks GI/Abdominal exam: Present: soft, normal bowel sounds. Absent: distended, tenderness, guarding, rebound, rigid Extremities exam: Present: normal inspection, full ROM, normal capillary refill. Absent: tenderness, pedal edema, joint swelling, calf tenderness Back exam: Present: normal inspection Neurological exam: Present: alert, oriented X3, CN II-XII intact Psychiatric exam: Present: normal affect, normal mood Skin exam: Present: warm, dry, intact, normal color. Absent: rash <Mark aBe - Last Filed: 05/22/19 08:51> Limitations: no limitations <Debbi Irizarry - Last Filed: 05/23/19 02:02> - General Exam Comments Initial Comments: Physical Exam GENERAL: Patient is well-developed and well-nourished. Patient is nontoxic and well- hydrated and is in no distress. HENT: Normocephalic, Atraumatic. EYES: PERRL, EOMI PULMONARY: Unlabored respirations. No audible rales rhonchi or wheezing was noted. CARDIOVASCULAR: There is a regular rate and rhythm without any murmurs gallops or rubs. ABDOMEN: Soft and nontender with normal bowel sounds. SKIN: Skin is clear with no lesions or rashes and otherwise unremarkable. : Deferred NEUROLOGIC: Patient is alert and oriented x3. Moving all extremities spontaneously MUSCULOSKELETAL: Normal extremities with adequate strength and full range of motion. No lower extremity swelling or edema. No calf tenderness. PSYCHIATRIC: Agitated, minimally cooperative with evaluation (Debbi Irizarry) Course <Mark Bae - Last Filed: 05/22/19 08:51> Vital Signs 05/22/19 05/22/1919 04:03 07:11 16:00 Temperature 97.0 F L 97.1 F L 97.1 F L Pulse Rate 61 77 77 Respiratory 18 16 16 Rate Blood Pressure 128/77 132/86 132/86 O2 Sat by Pulse 100 99 99 Oximetry 05/22/19 16:54 Temperature 97.1 F L Pulse Rate 77 Respiratory 16 Rate Blood Pressure 132/86 O2 Sat by Pulse 99 Oximetry - Reevaluation(s) Reevaluation #1: 05/22/19 08:51 Medical record is reviewed (Mark Bae) Reevaluation #2: 05/22/19 08:51 Patient seen evaluated with psychiatry (Mark Bae) Medical Decision Making <Mark Bae - Last Filed: 05/22/19 08:51> - Lab Data Result diagrams: 05/22/19 10:03 05/22/19 10:03 <Debbi Irizarry - Last Filed: 05/23/19 02:02> - Medical Decision Making 20 female seen and evaluated with psychiatry, patient will be admitted for evaluation, transferred for inpatient evaluation by psychiatric (Mark Bae) The patient was seen and evaluated, history was obtained from the petition a court order and minimally from the patient Patient's breath alcohol is negative patient is medically cleared for evaluation by EPS (Debbi Irizarry) - Lab Data Lab Results 05/22/19 05/22/19 05/22/19 Range/Units 07:17 07:18 10:03 WBC 8.2 (3.8-10.6) k/uL RBC 4.78 (4.30-5.90) m/uL Hgb 14.7 (13.0-17.5) gm/dL Hct 43.8 (39.0-53.0) % MCV 91.6 (80.0-100.0) fL MCH 30.6 (25.0-35.0) pg MCHC 33.5 (31.0-37.0) g/dL RDW 13.2 (11.5-15.5) % Plt Count 229 (150-450) k/uL Sodium (137-145) mmol/L Potassium (3.5-5.1) mmol/L Chloride (98-107) mmol/L Carbon Dioxide (22-30) mmol/L Anion Gap mmol/L BUN (9-20) mg/dL Creatinine (0.66-1.25) mg/dL Est GFR (CKD-EPI)AfAm (>60 ml/min/1.73 sqM) Est GFR (CKD-EPI)NonAf (>60 ml/min/1.73 sqM) Glucose (74-99) mg/dL Calcium (8.4-10.2) mg/dL Total Bilirubin (0.2-1.3) mg/dL AST (17-59) U/L ALT (21-72) U/L Alkaline Phosphatase (38-126) U/L Total Protein (6.3-8.2) g/dL Albumin (3.5-5.0) g/dL Urine Color Yellow Urine Appearance Cloudy (Clear) Urine pH 6.0 (5.0-8.0) Ur Specific Denhoff 1.040 H (1.001-1.035) Urine Protein 2+ H (Negative) Urine Glucose (UA) Negative (Negative) Urine Ketones 4+ H (Negative) Urine Blood Trace H (Negative) Urine Nitrite Negative (Negative) Urine Bilirubin 1+ H (Negative) Urine Urobilinogen 2.0 (<2.0) mg/dL Ur Leukocyte Esterase Negative (Negative) Urine RBC 8 H (0-5) /hpf Urine WBC 1 (0-5) /hpf Urine Mucus Few H (None) /hpf Urine Sperm Moderate H (None) /hpf Urine Opiates Screen Not Detected (NotDetected) Ur Oxycodone Screen Not Detected (NotDetected) Urine Methadone Screen Not Detected (NotDetected) Ur Propoxyphene Screen Not Detected (NotDetected) Ur Barbiturates Screen Not Detected (NotDetected) U Tricyclic Antidepress Not Detected (NotDetected) Ur Phencyclidine Scrn Not Detected (NotDetected) Ur Amphetamines Screen Not Detected (NotDetected) U Methamphetamines Scrn Not Detected (NotDetected) U Benzodiazepines Scrn Detected H (NotDetected) Urine Cocaine Screen Not Detected (NotDetected) U Marijuana (THC) Screen Detected H (NotDetected) 05/22/19 Range/Units 10:03 WBC (3.8-10.6) k/uL RBC (4.30-5.90) m/uL Hgb (13.0-17.5) gm/dL Hct (39.0-53.0) % MCV (80.0-100.0) fL MCH (25.0-35.0) pg MCHC (31.0-37.0) g/dL RDW (11.5-15.5) % Plt Count (150-450) k/uL Sodium 142 (137-145) mmol/L Potassium 3.8 (3.5-5.1) mmol/L Chloride 107 (98-107) mmol/L Carbon Dioxide 25 (22-30) mmol/L Anion Gap 10 mmol/L BUN 18 (9-20) mg/dL Creatinine 0.74 (0.66-1.25) mg/dL Est GFR (CKD-EPI)AfAm >90 (>60 ml/min/1.73 sqM) Est GFR (CKD-EPI)NonAf >90 (>60 ml/min/1.73 sqM) Glucose 100 H (74-99) mg/dL Calcium 9.9 (8.4-10.2) mg/dL Total Bilirubin 0.8 (0.2-1.3) mg/dL AST 43 (17-59) U/L ALT 36 (21-72) U/L Alkaline Phosphatase 73 (38-126) U/L Total Protein 7.3 (6.3-8.2) g/dL Albumin 4.6 (3.5-5.0) g/dL Urine Color Urine Appearance (Clear) Urine pH (5.0-8.0) Ur Specific Denhoff (1.001-1.035) Urine Protein (Negative) Urine Glucose (UA) (Negative) Urine Ketones (Negative) Urine Blood (Negative) Urine Nitrite (Negative) Urine Bilirubin (Negative) Urine Urobilinogen (<2.0) mg/dL Ur Leukocyte Esterase (Negative) Urine RBC (0-5) /hpf Urine WBC (0-5) /hpf Urine Mucus (None) /hpf Urine Sperm (None) /hpf Urine Opiates Screen (NotDetected) Ur Oxycodone Screen (NotDetected) Urine Methadone Screen (NotDetected) Ur Propoxyphene Screen (NotDetected) Ur Barbiturates Screen (NotDetected) U Tricyclic Antidepress (NotDetected) Ur Phencyclidine Scrn (NotDetected) Ur Amphetamines Screen (NotDetected) U Methamphetamines Scrn (NotDetected) U Benzodiazepines Scrn (NotDetected) Urine Cocaine Screen (NotDetected) U Marijuana (THC) Screen (NotDetected) Disposition Is patient prescribed a controlled substance at d/c from ED?: No <Mark Bae B - Last Filed: 05/22/19 08:51> Is patient prescribed a controlled substance at d/c from ED?: No <Debbi Irizarry P - Last Filed: 05/23/19 02:02> Clinical Impression: Psychosis, Cannabis use disorder, mild, abuse, Depression Disposition: TRANSFER TO PSYCH HOSP/UNIT Condition: Fair Referrals: Charu Jimenez MD [Primary Care Provider] - 1-2 days
[2019-05-22 08:11] LABS: Amphetamine Screen,Urine Not Detected (NotDetected); Barbiturate Screen,Urine Not Detected (NotDetected); Benzodiazepines Screen,Urine Detected (NotDetected); Cocaine Screen,Urine Not Detected (NotDetected); Methadone Screen, Urine Not Detected (NotDetected); Opiate Screen,Urine Not Detected (NotDetected); Oxycodone Screen, Urine Not Detected (NotDetected); Phencyclidine Screen,Urine Not Detected (NotDetected); Tricyclic Antidepressant,Urine Not Detected (NotDetected); Urn Cannabinoid Scrn Detected (NotDetected)
[2019-05-22] MEDS ORDERED: LORazepam 2 MG/ML INJ IM STA (09:03)
[2019-05-22 10:13] LABS: Appearance,Urine Cloudy (Clear); Bilirubin,Urine 1+ (Negative); Blood,Urine Trace (Negative); Color,Urine Yellow; Glucose,Urine (UA) Negative (Negative); Ketones,Urine 4+ (Negative); Leukocyte Esterase,Urine Negative (Negative); Mucus,Urine Few /hpf; Nitrite,Urine Negative (Negative); Protein,Urine 2+ (Negative); RBC,Urine 8 /hpf (0-5); Sperm,Urine Moderate /hpf; WBC,Urine 1 /hpf (0-5)
[2019-05-22 10:13] LABS: HCT 43.8 % (39.0-53.0); HGB 14.7 gm/dL (13.0-17.5); MCH 30.6 pg (25.0-35.0); MCHC 33.5 g/dL (31.0-37.0); MCV 91.6 fL (80.0-100.0); Mean Platelet Volume 7.1; Platelet Count 229 k/uL (150-450); RBC 4.78 m/uL (4.30-5.90); RDW 13.2 % (11.5-15.5); WBC 8.2 k/uL (3.8-10.6)
[2019-05-22 10:20] LABS: ALT 36 U/L (21-72); AST 43 U/L (17-59); African American GFR (CKD) >90 (>60 ml/min/1.73 sqM); Albumin 4.6 g/dL (3.5-5.0); Alkaline Phosphatase 73 U/L (38-126); Anion Gap 10 mmol/L; Blood Urea Nitrogen 18 mg/dL (9-20); Calcium 9.9 mg/dL (8.4-10.2); Carbon Dioxide 25 mmol/L (22-30); Chloride 107 mmol/L (98-107); Glucose 100 mg/dL (74-99); Non-African American GFR(CKD) >90 (>60 ml/min/1.73 sqM); Potassium 3.8 mmol/L (3.5-5.1); Sodium 142 mmol/L (137-145); Total Bilirubin 0.8 mg/dL (0.2-1.3); Total Protein 7.3 g/dL (6.3-8.2)
== END 2019-05-22 16:55 ==
LOC: EC 04:01
DX: F12.10 Cannabis abuse, uncomplicated (principal); F29 Unspecified psychosis not due to a substance or known physiological condition; F32.9 Major depressive disorder, single episode, unspecified; R45.1 Restlessness and agitation; F41.9 Anxiety disorder, unspecified; F17.200 Nicotine dependence, unspecified, uncomplicated; Z88.5 Allergy status to narcotic agent; Z79.899 Other long term (current) drug therapy
CPT/HCPCS: 82075; 36415; 80053; 85027; 81001; 80306; 99285; 96372; J2060

== ENCOUNTER 2019-06-16 15:15 | Emergency (ER) | payer OTHER ==
[2019-06-16 15:22] VITALS: RESP 18
--- NOTE | 2019-06-16 15:50 | ED ---
General Adult HPI - General Source: patient, police, RN notes reviewed Mode of arrival: ambulatory Limitations: no limitations <Chapito Vyas - Last Filed: 06/16/19 19:38> <Nghia Dubon - Last Filed: 06/18/19 06:39> - General Chief complaint: Psychiatric Symptoms Stated complaint: petition Time Seen by Provider: 06/16/19 15:20 - History of Present Illness Initial comments: 24-year-old male with a past medical history of ADD, anxiety, bipolar disorder, borderline personality, depression, PTSD presents to the emergency department by petition. Patient states he is feeling fine and denies any thoughts of harming himself or anyone else. Denies any suicidal thoughts. Patient states he got into an argument with his mother today because she keeps petitioning him and then he believes she called the Court. Patient was picked up by [facility] police. Patient was cooperative and transportation here and is cooperative here in the emergency room. States he is eating and sleeping normally. States he is taking all his medications except for his Abilify at night because he has not needed to help him sleep.Patient has no other complaints at this time including shortness of breath, chest pain, abdominal pain, nausea or vomiting, headache, or visual changes. (Chapito Vyas) - Related Data Home Medications Medication Instructions Recorded Confirmed ALPRAZolam [Xanax] 0.5 mg PO DAILY 05/22/19 06/16/19 ARIPiprazole [Abilify Maintena] 400 mg IM DIRECTED 06/16/19 06/16/19 ARIPiprazole [Abilify] 20 mg PO DIRECTED 06/16/19 06/16/19 Cariprazine HCl [Vraylar] 1.5 mg PO HS 06/16/19 06/16/19 clonazePAM [KlonoPIN] 1 mg PO BID@0900,2100 06/16/19 06/16/19 traZODone HCL 150 mg PO HS 06/16/19 06/16/19 Allergies Allergy/AdvReac Type Severity Reaction Status Date / Time codeine AdvReac Nausea & Verified 06/16/19 16:11 Vomiting Review of Systems ROS Other: All systems not noted in ROS Statement are negative. <Chapito Vyas - Last Filed: 06/16/19 19:38> ROS Other: All systems not noted in ROS Statement are negative. <LingNghia - Last Filed: 06/18/19 06:39> ROS Statement: Those systems with pertinent positive or pertinent negative responses have been documented in the HPI. Past Medical History Past Medical History: No Reported History History of Any Multi-Drug Resistant Organisms: None Reported Past Surgical History: No Surgical Hx Reported Past Psychological History: ADD/ADHD, Anxiety, Bipolar, Depression, PTSD Smoking Status: Current every day smoker Past Alcohol Use History: Occasional Past Drug Use History: Marijuana <Chapito Vysa - Last Filed: 06/16/19 19:38> General Exam Limitations: no limitations General appearance: alert, in no apparent distress Head exam: Present: atraumatic, normocephalic, normal inspection Eye exam: Present: normal appearance, PERRL, EOMI. Absent: scleral icterus, conjunctival injection, periorbital swelling ENT exam: Present: normal exam, mucous membranes moist Neck exam: Present: normal inspection. Absent: tenderness, meningismus, lymphadenopathy Respiratory exam: Present: normal lung sounds bilaterally. Absent: respiratory distress, wheezes, rales, rhonchi, stridor Cardiovascular Exam: Present: regular rate, normal rhythm, normal heart sounds. Absent: systolic murmur, diastolic murmur, rubs, gallop, clicks Neurological exam: Present: alert, oriented X3, CN II-XII intact Psychiatric exam: Present: normal affect, normal mood, flat affect. Absent: homicidal ideation, suicidal ideation <Chapito Vyas - Last Filed: 06/16/19 19:38> Course <Nghia Dubon - Last Filed: 06/18/19 06:39> Vital Signs 06/16/19 06/16/19 06/17/19 15:17 20:08 06:45 Temperature 98.3 F 97.9 F Pulse Rate 85 69 80 Respiratory 18 18 18 Rate Blood Pressure 142/80 121/72 109/75 O2 Sat by Pulse 99 98 99 Oximetry - Reevaluation(s) Reevaluation #1: 06/16/19 21:53 I was asked to see this patient for the purposes of filing a clinical certificate. The patient has had night psychiatric medications and was not wanting to speak with me., Preferring to sleep. Based on the evidence here I have filed a clinical certificate with fact that he has a court ordered evaluation attaches chart and there is a petition that alleges threatening behavior towards a sibling. In addition the patient appears to have stopped some of his psychiatric regimen of his own accord. Again the patient was somewhat from his night medications and did not want to discuss further with me at this time. (Nghia Dubon) Medical Decision Making <Chapito Vyas - Last Filed: 06/16/19 19:38> - Lab Data Result diagrams: 06/17/19 01:44 06/17/19 01:44 <Nghia Dubon - Last Filed: 06/18/19 06:39> - Medical Decision Making 24-year-old male with a complex psychiatric history presents hypertension. Patient denying any complaints at this time but apparently got into an altercation with his mother earlier today and she petitioned Pram[facility]. Denies suicidal thoughts or thoughts of harming anyone else. Denies any other complaints. Patient currently awaiting EPS evaluation and care was signed out to Dr. Falcon At 1999. (Chapito Vyas) - Lab Data Lab Results 06/16/19 06/17/19 06/17/19 Range/Units 21:31 01:44 01:44 WBC 8.9 (3.8-10.6) k/uL RBC 4.95 (4.30-5.90) m/uL Hgb 14.8 (13.0-17.5) gm/dL Hct 45.4 (39.0-53.0) % MCV 91.7 (80.0-100.0) fL MCH 30.0 (25.0-35.0) pg MCHC 32.7 (31.0-37.0) g/dL RDW 13.5 (11.5-15.5) % Plt Count 257 (150-450) k/uL Neutrophils % 48 % Lymphocytes % 41 % Monocytes % 7 % Eosinophils % 3 % Basophils % 1 % Neutrophils # 4.2 (1.3-7.7) k/uL Lymphocytes # 3.6 (1.0-4.8) k/uL Monocytes # 0.6 (0-1.0) k/uL Eosinophils # 0.3 (0-0.7) k/uL Basophils # 0.1 (0-0.2) k/uL Sodium 139 (137-145) mmol/L Potassium 4.1 (3.5-5.1) mmol/L Chloride 109 H (98-107) mmol/L Carbon Dioxide 22 (22-30) mmol/L Anion Gap 8 mmol/L BUN 12 (9-20) mg/dL Creatinine 0.66 (0.66-1.25) mg/dL Est GFR (CKD-EPI)AfAm >90 (>60 ml/min/1.73 sqM) Est GFR (CKD-EPI)NonAf >90 (>60 ml/min/1.73 sqM) Glucose 102 H (74-99) mg/dL Calcium 9.4 (8.4-10.2) mg/dL Total Bilirubin 0.3 (0.2-1.3) mg/dL AST 27 (17-59) U/L ALT 20 L (21-72) U/L Alkaline Phosphatase 54 (38-126) U/L Total Protein 6.6 (6.3-8.2) g/dL Albumin 4.1 (3.5-5.0) g/dL Urine Opiates Screen Not Detected (NotDetected) Ur Oxycodone Screen Not Detected (NotDetected) Urine Methadone Screen Not Detected (NotDetected) Ur Propoxyphene Screen Not Detected (NotDetected) Ur Barbiturates Screen Not Detected (NotDetected) U Tricyclic Antidepress Not Detected (NotDetected) Ur Phencyclidine Scrn Not Detected (NotDetected) Ur Amphetamines Screen Not Detected (NotDetected) U Methamphetamines Scrn Not Detected (NotDetected) U Benzodiazepines Scrn Detected H (NotDetected) Urine Cocaine Screen Not Detected (NotDetected) U Marijuana (THC) Screen Detected H (NotDetected) Disposition <Chapito Vyas - Last Filed: 06/16/19 19:38> Is patient prescribed a controlled substance at d/c from ED?: No <Nghia Dubon - Last Filed: 06/18/19 06:39> Clinical Impression: Mood disorder Disposition: TRANSFER TO PSYCH HOSP/UNIT Condition: Fair Referrals: Charu Jimenez MD [Primary Care Provider] - 1-2 days
[2019-06-16] MEDS ORDERED: NICOTINE 21MG/24HR PATCH TRANSDERM STA (20:01)
[2019-06-16] MEDS ORDERED: PENICILLIN V POTASSIUM 250 MG TAB PO STA (21:05)
[2019-06-16] MEDS ORDERED: clonazePAM 1 MG TAB PO STA (21:06)
[2019-06-16] MEDS ORDERED: traZODone HCL 50 MG TAB PO ONE (21:15)
[2019-06-16 22:24] LABS: Amphetamine Screen,Urine Not Detected (NotDetected); Barbiturate Screen,Urine Not Detected (NotDetected); Benzodiazepines Screen,Urine Detected (NotDetected); Cocaine Screen,Urine Not Detected (NotDetected); Methadone Screen, Urine Not Detected (NotDetected); Opiate Screen,Urine Not Detected (NotDetected); Oxycodone Screen, Urine Not Detected (NotDetected); Phencyclidine Screen,Urine Not Detected (NotDetected); Tricyclic Antidepressant,Urine Not Detected (NotDetected); Urn Cannabinoid Scrn Detected (NotDetected)
[2019-06-17 02:10] LABS: Basophils # (A) 0.1 k/uL (0-0.2); Basophils % (A) 1 %; Eosinophils # (A) 0.3 k/uL (0-0.7); Eosinophils % (A) 3 %; HCT 45.4 % (39.0-53.0); HGB 14.8 gm/dL (13.0-17.5); Lymphocytes # (A) 3.6 k/uL (1.0-4.8); Lymphocytes % (A) 41 %; MCHC 32.7 g/dL (31.0-37.0); MCV 91.7 fL (80.0-100.0); Mean Platelet Volume 6.7; Monocytes # (A) 0.6 k/uL (0-1.0); Monocytes % (A) 7 %; Neutrophils # (A) 4.2 k/uL (1.3-7.7); Neutrophils % (A) 48 %; Platelet Count 257 k/uL (150-450); RBC 4.95 m/uL (4.30-5.90); RDW 13.5 % (11.5-15.5); WBC 8.9 k/uL (3.8-10.6)
[2019-06-17 02:25] LABS: ALT 20 U/L (21-72); AST 27 U/L (17-59); African American GFR (CKD) >90 (>60 ml/min/1.73 sqM); Albumin 4.1 g/dL (3.5-5.0); Alkaline Phosphatase 54 U/L (38-126); Anion Gap 8 mmol/L; Blood Urea Nitrogen 12 mg/dL (9-20); Calcium 9.4 mg/dL (8.4-10.2); Carbon Dioxide 22 mmol/L (22-30); Chloride 109 mmol/L (98-107); Glucose 102 mg/dL (74-99); Potassium 4.1 mmol/L (3.5-5.1); Sodium 139 mmol/L (137-145); Total Bilirubin 0.3 mg/dL (0.2-1.3); Total Protein 6.6 g/dL (6.3-8.2)
[2019-06-17 06:46] VITALS: BP 109/75; PULSE 80; TEMP 97.9
== END 2019-06-17 06:53 ==
LOC: EC 15:15
DX: Z04.6 Encounter for general psychiatric examination, requested by authority (principal); F39 Unspecified mood [affective] disorder; F41.9 Anxiety disorder, unspecified; F31.9 Bipolar disorder, unspecified; F98.8 Other specified behavioral and emotional disorders with onset usually occurring in childhood and adolescence; F60.3 Borderline personality disorder; F43.10 Post-traumatic stress disorder, unspecified; I10 Essential (primary) hypertension; F17.200 Nicotine dependence, unspecified, uncomplicated; Z79.899 Other long term (current) drug therapy; Z88.5 Allergy status to narcotic agent; Y09 Assault by unspecified means
CPT/HCPCS: 82075; 36415; 80053; 85025; 80306; 99285; S4990

== ENCOUNTER 2019-06-27 18:52 | Emergency (ER) | payer OTHER ==
[2019-06-27 19:17] VITALS: BP 132/87; PULSE 83; RESP 18; TEMP 98
--- NOTE | 2019-06-27 19:20 | ED ---
Psych HPI - General Source: patient Mode of arrival: ambulatory <Latasha Mendieta - Last Filed: 06/27/19 19:55> <Bandar Campos - Last Filed: 06/27/19 21:23> - General Chief Complaint: Psychiatric Symptoms Stated Complaint: Mental Health Time Seen by Provider: 06/27/19 19:14 - History of Present Illness Initial Comments: 44-year-old male presenting for psychiatric evaluation. Patient states that he has been hearing voices since they discontinues his Abilify this week. He states initially he thought he was having a reaction to Abilify became aggravated he states that he just spent time and awake and was discharged and he had discontinued Abilify. He states now he is hearing voices. He states he is not sure if he needs Abilify or something else to help suppress the voices. He states he does have a history of schizophrenia. Patient denies any suicidal or homicidal ideation. Patient is voluntarily coming to the hospital for evaluation. Patient prefers that he has not transferred as is difficult for him to make a home from these transfers. Patient denies any other complaints. Remaining review of system negative. (Latasha Mendieta) - Related Data Home Medications Medication Instructions Recorded Confirmed ALPRAZolam [Xanax] 0.5 mg PO DAILY 05/22/19 06/27/19 traZODone HCL 150 mg PO HS 06/16/19 06/27/19 Albuterol Inhaler [Ventolin Hfa 2 puff INHALATION RT-Q6H PRN 06/27/19 06/27/19 Inhaler] Cariprazine HCl [Vraylar] 3 mg PO QAM 06/27/19 06/27/19 Allergies Allergy/AdvReac Type Severity Reaction Status Date / Time aripiprazole [From Abilify] AdvReac AGITATED Verified 06/27/19 20:36 codeine AdvReac Nausea & Verified 06/27/19 20:36 Vomiting Review of Systems ROS Other: All systems not noted in ROS Statement are negative. <Latasha Mendieta - Last Filed: 06/27/19 19:55> ROS Other: All systems not noted in ROS Statement are negative. <Bandar Campos - Last Filed: 06/27/19 21:23> ROS Statement: Those systems with pertinent positive or pertinent negative responses have been documented in the HPI. Past Medical History Past Medical History: No Reported History History of Any Multi-Drug Resistant Organisms: None Reported Past Surgical History: No Surgical Hx Reported Past Psychological History: ADD/ADHD, Anxiety, Bipolar, Depression, PTSD Smoking Status: Current every day smoker Past Alcohol Use History: Occasional Past Drug Use History: Marijuana <Latasha Mendieta - Last Filed: 06/27/19 19:55> General Exam Limitations: no limitations <Latasha Mendieta - Last Filed: 06/27/19 19:55> - General Exam Comments Initial Comments: General: The patient is awake and alert, in no distress Eye: Pupils are equal, round and reactive to light, extra-ocular movements are intact. No nystagmus. There is normal conjunctiva bilaterally. No signs of icterus. Ears, nose, mouth and throat: There are moist mucous membranes and no oral lesions. Neck: The neck is supple, there is no tenderness or JVD. Cardiovascular: There is a regular rate and rhythm. No murmur, rub or gallop is appreciated. Respiratory: Lungs are clear to auscultation, respirations are non-labored, breath sounds are equal. No wheezes, stridor, rales, or rhonchi. Gastrointestinal: Soft, non-distended, non-tender abdomen without masses or organomegaly noted. There is no rebound or guarding present. Musculoskeletal: Normal ROM, no tenderness. Strength 5/5. Sensation intact. Pulses equal bilaterally 2+. Neurological: A&O x 3. CN II-XII intact, There are no obvious motor or sensory deficits. Coordination appears grossly intact. Speech is normal. Skin: Skin is warm and dry and no rashes or lesions are noted. Psychiatric: Cooperative, flat affect (Latasha Mendieta) Course <Latasha Mendieta - Last Filed: 06/27/19 19:55> Vital Signs 06/27/19 19:12 Temperature 98.0 F Pulse Rate 83 Respiratory 18 Rate Blood Pressure 132/87 O2 Sat by Pulse 98 Oximetry - Reevaluation(s) Reevaluation #1: I personally medically cleared patient at 19:25, and I did personally speak with EPS letting Anuja know that patient is ready for evaluation. 06/27/19 19:31 (Latasha Mendieta) Reevaluation #2: Sign out to Dr. Campos at 8PM on shift change. 06/27/19 19:55 (Latasha Mendieta) Medical Decision Making <Latasha Mendieta - Last Filed: 06/27/19 19:55> <Bandar Campos - Last Filed: 06/27/19 21:23> - Medical Decision Making 24-year-old male presenting for auditory hallucinations. Denies suicidal or homicidal ideation. Patient states that he believes it is from discontinuing his Abilify he states however he felt the Abilify did make more agitated is not sure if there is other medications available. Patient has no other complaints he appears well he's not aggravated aggressive is very compliant at this time. Will continue to monitor. Patient is medically cleared for EPS evaluation. (Latasha Mendieta) Patient is signed out to me by previous shift physician assistant golf coach maintained. Briefly, patient is a 24-year-old male who presents with acute psychosis. Patient was medically cleared by physician assistant golf coach. Patient care of signed out to me for follow-up of EPS recommendations. EPS evaluated patient and recommends discharge home. Patient has [facility] outpatient psych appointment later this week. He appears quickly stable at this time. Patient is calm and cooperative. Agree with EPS recommendations. (Bandar Campos) - Lab Data Lab Results 06/27/19 Range/Units 07:30 Urine Color Yellow Urine Appearance Turbid (Clear) Urine pH 7.0 (5.0-8.0) Ur Specific [place] 1.017 (1.001-1.035) Urine Protein Negative (Negative) Urine Glucose (UA) Negative (Negative) Urine Ketones Negative (Negative) Urine Blood Negative (Negative) Urine Nitrite Negative (Negative) Urine Bilirubin Negative (Negative) Urine Urobilinogen <2.0 (<2.0) mg/dL Ur Leukocyte Esterase Negative (Negative) Urine RBC 5 (0-5) /hpf Amorphous Sediment Rare H (None) /hpf Urine Opiates Screen Not Detected (NotDetected) Ur Oxycodone Screen Not Detected (NotDetected) Urine Methadone Screen Not Detected (NotDetected) Ur Propoxyphene Screen Not Detected (NotDetected) Ur Barbiturates Screen Not Detected (NotDetected) U Tricyclic Antidepress Not Detected (NotDetected) Ur Phencyclidine Scrn Not Detected (NotDetected) Ur Amphetamines Screen Not Detected (NotDetected) U Methamphetamines Scrn Not Detected (NotDetected) U Benzodiazepines Scrn Detected H (NotDetected) Urine Cocaine Screen Not Detected (NotDetected) U Marijuana (THC) Screen Detected H (NotDetected) Disposition <Latasha Mendieta L - Last Filed: 06/27/19 19:55> Is patient prescribed a controlled substance at d/c from ED?: No Time of Disposition: 21:23 <Bandar Campos D - Last Filed: 06/27/19 21:23> Clinical Impression: Acute psychosis Disposition: HOME SELF-CARE Condition: Good Instructions (If sedation given, give patient instructions): Mood Disorders (ED), Brief Psychotic Disorder (ED) Referrals: Charu Jimenez MD [Primary Care Provider] - 1-2 days
[2019-06-27 20:09] LABS: Amorphous Sediment,Urine Rare /hpf; Appearance,Urine Turbid (Clear); Bilirubin,Urine Negative (Negative); Blood,Urine Negative (Negative); Color,Urine Yellow; Glucose,Urine (UA) Negative (Negative); Ketones,Urine Negative (Negative); Leukocyte Esterase,Urine Negative (Negative); Nitrite,Urine Negative (Negative); Protein,Urine Negative (Negative); RBC,Urine 5 /hpf (0-5); Specific Gravity,Urine 1.017 (1.001-1.035); Urobilinogen,Urine <2.0 mg/dL (<2.0)
[2019-06-27 20:21] LABS: Amphetamine Screen,Urine Not Detected (NotDetected); Barbiturate Screen,Urine Not Detected (NotDetected); Benzodiazepines Screen,Urine Detected (NotDetected); Cocaine Screen,Urine Not Detected (NotDetected); Methadone Screen, Urine Not Detected (NotDetected); Opiate Screen,Urine Not Detected (NotDetected); Oxycodone Screen, Urine Not Detected (NotDetected); Phencyclidine Screen,Urine Not Detected (NotDetected); Tricyclic Antidepressant,Urine Not Detected (NotDetected); Urn Cannabinoid Scrn Detected (NotDetected)
== END 2019-06-27 21:29 | disposition home or self-care (01) ==
LOC: EC 18:52
DX: F23 Brief psychotic disorder (principal); F41.9 Anxiety disorder, unspecified; F32.9 Major depressive disorder, single episode, unspecified; F43.10 Post-traumatic stress disorder, unspecified; F17.200 Nicotine dependence, unspecified, uncomplicated; Z79.899 Other long term (current) drug therapy; Z88.8 Allergy status to other drugs, medicaments and biological substances; Z88.5 Allergy status to narcotic agent
CPT/HCPCS: 80306; 81001; 82075; 99285

== ENCOUNTER 2019-06-30 19:27 | Emergency (ER) | payer OTHER ==
[2019-06-30 19:44] VITALS: RESP 18; TEMP 98.7
--- NOTE | 2019-06-30 20:16 | ED ---
General Adult HPI - General Source: patient, RN notes reviewed Mode of arrival: ambulatory Limitations: no limitations <Mark Zepeda - Last Filed: 06/30/19 21:04> <Nghia Dubon - Last Filed: 07/01/19 01:10> - General Chief complaint: Psychiatric Symptoms Stated complaint: Mental health Time Seen by Provider: 06/30/19 19:35 - History of Present Illness Initial comments: This is a 24-year-old male who presents emergency Department with a past medical history significant for bipolar. He was here in the emergency department a few days ago because he was becoming more agitated and hearing more voices and seeing things. According to his mother he is agitated and is pacing quite a bit and occasionally he states he can't see and his mother is his eyes. Patient denies any suicidal homicidal ideations. Patient states the voices he hears do not tell him to do anything bad but they do tell medical bed. patient states he does see some visual hallucinations but he does not know exactly what they are. Patient denies any physical complaints today. Patient denies chest pain difficult breathing shortness of breath. Patient denies any recent fever chills or cough per patient denies abdominal pain patient denies nausea vomiting diarrhea. (Mark Zepeda) - Related Data Home Medications Medication Instructions Recorded Confirmed ALPRAZolam [Xanax] 0.5 mg PO DAILY 05/22/19 06/30/19 traZODone HCL 150 mg PO HS 06/16/19 06/30/19 Albuterol Inhaler [Ventolin Hfa 2 puff INHALATION RT-Q6H PRN 06/27/19 06/30/19 Inhaler] Cariprazine HCl [Vraylar] 3 mg PO QAM 06/27/19 06/30/19 Allergies Allergy/AdvReac Type Severity Reaction Status Date / Time aripiprazole [From Abilify] AdvReac AGITATED Verified 06/30/19 20:39 codeine AdvReac Nausea & Verified 06/30/19 20:39 Vomiting Review of Systems ROS Other: All systems not noted in ROS Statement are negative. <Mark Zepeda - Last Filed: 06/30/19 21:04> ROS Other: All systems not noted in ROS Statement are negative. <Nghia Dubon - Last Filed: 07/01/19 01:10> ROS Statement: Those systems with pertinent positive or pertinent negative responses have been documented in the HPI. Past Medical History Past Medical History: No Reported History History of Any Multi-Drug Resistant Organisms: None Reported Past Surgical History: No Surgical Hx Reported Past Psychological History: ADD/ADHD, Anxiety, Bipolar, Depression, PTSD Smoking Status: Current every day smoker Past Alcohol Use History: Occasional Past Drug Use History: Marijuana <Mark Zepeda - Last Filed: 06/30/19 21:04> General Exam Limitations: no limitations <Mark Zepeda - Last Filed: 06/30/19 21:04> - General Exam Comments Initial Comments: GENERAL: Patient is well-developed and well-nourished. Patient is nontoxic and well-h ydrated and is in no acute distress. ENT: Neck is soft and supple. No significant lymphadenopathy is noted. Oropharynx is clear. Moist mucous membranes. Neck has full range of motion without elic iting any pain. EYES: The sclera were anicteric and conjunctiva were pink and moist. Extraocular movements were intact and pupils were equal round and reactive to light. Eyelids were unremarkable. PULMONARY: Unlabored respirations. Good breath sounds bilaterally. No audible rales rhonchi or wheezing was noted. CARDIOVASCULAR: There is a regular rate and rhythm without any murmurs gallops or rubs. ABDOMEN: Soft and nontender with normal bowel sounds. SKIN: Skin is clear with no lesions or rashes and otherwise unremarkable. NEUROLOGIC: Patient is alert and oriented x3. Cranial nerves II through XII are grossly intact. Motor and sensory are also intact. Normal speech, volume and content. Symmetrical smile. MUSCULOSKELETAL: Normal extremities with adequate strength and full range of motion. LYMPHATICS: No significant lymphadenopathy is noted PSYCHIATRIC: Patient is mildly agitated and does state he is hearing voices and seeing things. Patient states the voices don't tell him anything bad and he doesn't know exactly what he is saying. (Mark Zepeda) Course Vital Signs 06/30/19 06/30/19 19:37 23:23 Temperature 98.7 F Pulse Rate 92 74 Respiratory 18 18 Rate Blood Pressure 139/90 101/54 O2 Sat by Pulse 96 98 Oximetry Medical Decision Making <Mark Zepeda - Last Filed: 06/30/19 21:04> <Nghia Dubon - Last Filed: 07/01/19 01:10> - Medical Decision Making Dr. Montalvo will be taking over the care of this patient at 9 PM (Mark Zepeda) The patient is seen by behavioral health. He is mary for safety. They have established outpatient follow-up plan. (Nghia Dubon) - Lab Data Lab Results 06/30/19 Range/Units 19:47 Urine Opiates Screen Not Detected (NotDetected) Ur Oxycodone Screen Not Detected (NotDetected) Urine Methadone Screen Not Detected (NotDetected) Ur Propoxyphene Screen Not Detected (NotDetected) Ur Barbiturates Screen Not Detected (NotDetected) U Tricyclic Antidepress Not Detected (NotDetected) Ur Phencyclidine Scrn Not Detected (NotDetected) Ur Amphetamines Screen Not Detected (NotDetected) U Methamphetamines Scrn Not Detected (NotDetected) U Benzodiazepines Scrn Detected H (NotDetected) Urine Cocaine Screen Not Detected (NotDetected) U Marijuana (THC) Screen Detected H (NotDetected) Disposition <Mark Zepeda - Last Filed: 06/30/19 21:04> Is patient prescribed a controlled substance at d/c from ED?: No <Nghia Dubon - Last Filed: 07/01/19 01:10> Clinical Impression: Mood disorder Disposition: HOME SELF-CARE Condition: Good Instructions (If sedation given, give patient instructions): Mood Disorders (ED) Referrals: Charu Jimenez MD [Primary Care Provider] - 1-2 days
[2019-06-30 20:18] LABS: Cocaine Screen,Urine Not Detected (NotDetected); Phencyclidine Screen,Urine Not Detected (NotDetected)
[2019-06-30 20:19] LABS: Amphetamine Screen,Urine Not Detected (NotDetected); Barbiturate Screen,Urine Not Detected (NotDetected); Benzodiazepines Screen,Urine Detected (NotDetected); Methadone Screen, Urine Not Detected (NotDetected); Opiate Screen,Urine Not Detected (NotDetected); Oxycodone Screen, Urine Not Detected (NotDetected); Tricyclic Antidepressant,Urine Not Detected (NotDetected); Urn Cannabinoid Scrn Detected (NotDetected)
[2019-07-01 01:20] VITALS: BP 92/54; PULSE 70
== END 2019-07-01 01:20 | disposition home or self-care (01) ==
LOC: EC 19:27
DX: F39 Unspecified mood [affective] disorder (principal); F41.9 Anxiety disorder, unspecified; F31.9 Bipolar disorder, unspecified; F17.200 Nicotine dependence, unspecified, uncomplicated; Z79.899 Other long term (current) drug therapy; Z88.5 Allergy status to narcotic agent; Z88.8 Allergy status to other drugs, medicaments and biological substances
CPT/HCPCS: 80306; 82075; 99285

== ENCOUNTER 2020-11-16 00:11 | Emergency (ER) | payer OTHER ==
--- NOTE | 2020-11-16 00:18 | ED ---
Psych HPI - General Stated Complaint: Mental Health Time Seen by Provider: 11/16/20 00:14 Source: RN notes reviewed, old records reviewed - History of Present Illness Initial Comments: This is a 25-year-old male to the ER for evaluation patient presents today for evaluation regards to depression, patient feels depressed feels that he needs mental health evaluation denying drugs or alcohol, patient denies suicidal thoughts is brought in by EMS MD Complaint: feels depressed -: unknown Associated Psychiatric Symptoms: depression, suicidal ideation Quality: intermittent Improves With: none Worsens With: none Associated Symptoms: denies other symptoms Treatments Prior to Arrival: none If Self Harm: admits thoughts of self harm - Related Data Home Medications Medication Instructions Recorded Confirmed ALPRAZolam [Xanax] 0.5 mg PO DAILY 05/22/19 06/30/19 traZODone HCL 150 mg PO HS 06/16/19 06/30/19 Albuterol Inhaler (Mhu) [Ventolin 2 puff INHALATION RT-Q6H PRN 06/27/19 06/30/19 Hfa Inhaler] Cariprazine HCl [Vraylar] 3 mg PO QAM 06/27/19 06/30/19 Allergies Allergy/AdvReac Type Severity Reaction Status Date / Time aripiprazole [From Abilify] AdvReac AGITATED Verified 06/30/19 20:39 codeine AdvReac Nausea & Verified 06/30/19 20:39 Vomiting Review of Systems ROS Statement: Those systems with pertinent positive or pertinent negative responses have been documented in the HPI. ROS Other: All systems not noted in ROS Statement are negative. Past Medical History Past Medical History: No Reported History History of Any Multi-Drug Resistant Organisms: None Reported Past Surgical History: No Surgical Hx Reported Past Psychological History: ADD/ADHD, Anxiety, Bipolar, Depression, PTSD Past Alcohol Use History: Occasional Past Drug Use History: Marijuana General Exam General appearance: alert, in no apparent distress Head exam: Present: atraumatic, normocephalic, normal inspection Eye exam: Present: normal appearance, PERRL, EOMI. Absent: scleral icterus, conjunctival injection, periorbital swelling ENT exam: Present: normal exam, mucous membranes moist Neck exam: Present: normal inspection. Absent: tenderness, meningismus, lymphadenopathy Respiratory exam: Present: normal lung sounds bilaterally. Absent: respiratory distress, wheezes, rales, rhonchi, stridor Cardiovascular Exam: Present: regular rate, normal rhythm, normal heart sounds. Absent: systolic murmur, diastolic murmur, rubs, gallop, clicks GI/Abdominal exam: Present: soft, normal bowel sounds. Absent: distended, tenderness, guarding, rebound, rigid Extremities exam: Present: normal inspection, full ROM, normal capillary refill. Absent: tenderness, pedal edema, joint swelling, calf tenderness Back exam: Present: normal inspection Neurological exam: Present: alert, oriented X3, CN II-XII intact Psychiatric exam: Present: normal affect, normal mood Skin exam: Present: warm, dry, intact, normal color. Absent: rash Course Vital Signs 11/16/20 00:13 Temperature 98.4 F Pulse Rate 78 Respiratory 20 Rate Blood Pressure 136/90 O2 Sat by Pulse 100 Oximetry - Reevaluation(s) Reevaluation #1: Medical record is reviewed Symptoms improved here in the ER, patient seen and evaluated by psychiatry Medical Decision Making - Medical Decision Making 25 male to the ER for evaluation patient presents today for evaluation regards to psychiatric illness and depression. Patient seen and evaluated by psychiatry here in the ER deemed stable for discharge home Disposition Clinical Impression: Depression, Cannabis use disorder, mild, abuse, Psychosis Disposition: HOME SELF-CARE Condition: Fair Instructions (If sedation given, give patient instructions): Depression (ED) Is patient prescribed a controlled substance at d/c from ED?: No Referrals: Charu Jimenez MD [Primary Care Provider] - 1-2 days
[2020-11-16 00:20] VITALS: BP 136/90; PULSE 78; RESP 20; TEMP 98.4
== END 2020-11-16 06:28 | disposition home or self-care (01) ==
LOC: EC 00:11
DX: F12.159 Cannabis abuse with psychotic disorder, unspecified (principal); F32.9 Major depressive disorder, single episode, unspecified; F41.9 Anxiety disorder, unspecified; Z79.899 Other long term (current) drug therapy; Z88.5 Allergy status to narcotic agent; Z88.8 Allergy status to other drugs, medicaments and biological substances
CPT/HCPCS: 99285

== ENCOUNTER 2020-12-03 13:42 | Emergency (ER) | payer OTHER ==
[2020-12-03 13:58] VITALS: RESP 18; TEMP 99.1
--- NOTE | 2020-12-03 14:05 | ED ---
General Adult HPI - General Chief complaint: Psychiatric Symptoms Stated complaint: EPS eval Time Seen by Provider: 12/03/20 14:05 Source: patient Mode of arrival: ambulatory Limitations: no limitations - History of Present Illness Initial comments: 25-year-old male presents emergency department with multiple chief complaints. Patient reports ongoing pain on tooth #15 for the past several days. Denies any swelling or erythema on the face reports seeing a dentist long time ago. Denies any fevers or chills. He also reports right-sided testicular pain that has been ongoing for the past several years, intermittent in nature. He noticed a small mass in the right testicle. Denies any infectious or obstructive urinary symptoms. Denies any penile discharge. Denies concern for STDs. Patient is also here for a psychiatric evaluation because the mother had filed a petition. He is denying any homicidal, suicidal thoughts or ideations. - Related Data Home Medications Medication Instructions Recorded Confirmed ALPRAZolam [Xanax] 0.5 mg PO DAILY PRN 05/22/19 12/03/20 traZODone HCL 150 mg PO HS PRN 06/16/19 12/03/20 QUEtiapine [SEROquel] 50 mg PO BID 12/03/20 12/03/20 Previous Rx's Medication Instructions Recorded Amoxicillin/Potassium Clav 1 tab PO Q12HR #20 tab 12/03/20 [Augmentin 875-125 Tablet] Allergies Allergy/AdvReac Type Severity Reaction Status Date / Time aripiprazole [From Abilify] AdvReac AGITATED Verified 12/03/20 16:08 codeine AdvReac Nausea & Verified 12/03/20 16:08 Vomiting Review of Systems ROS Statement: Those systems with pertinent positive or pertinent negative responses have been documented in the HPI. ROS Other: All systems not noted in ROS Statement are negative. Past Medical History Past Medical History: No Reported History History of Any Multi-Drug Resistant Organisms: None Reported Past Surgical History: No Surgical Hx Reported Past Psychological History: ADD/ADHD, Anxiety, Bipolar, Depression, PTSD Smoking Status: Current every day smoker Past Alcohol Use History: Occasional Past Drug Use History: Marijuana General Exam Limitations: no limitations General appearance: alert, in no apparent distress Head exam: Present: atraumatic, normocephalic, normal inspection Eye exam: Present: normal appearance, PERRL, EOMI Pupils: Present: normal accommodation ENT exam: Present: normal exam, normal oropharynx (cavity noted in tooth #15 with no signs of periapical abscess.), mucous membranes moist Neck exam: Present: normal inspection, full ROM. Absent: tenderness Respiratory exam: Present: normal lung sounds bilaterally. Absent: respiratory distress Cardiovascular Exam: Present: regular rate, normal rhythm, normal heart sounds GI/Abdominal exam: Present: soft. Absent: distended, tenderness, guarding, rebound exam: Present: normal inspection, testicular tenderness (mild right-sided. Small palpable mass in the right testicle). Absent: urethral discharge, scrotal swelling, vertical testicular lie Extremities exam: Present: normal inspection, full ROM Back exam: Present: normal inspection, full ROM Neurological exam: Present: alert, oriented X3, normal gait Psychiatric exam: Present: normal affect, normal mood Skin exam: Present: warm, dry, intact, normal color Course Vital Signs 12/03/20 13:55 Temperature 99.1 F Pulse Rate 71 Respiratory 18 Rate Blood Pressure 151/84 O2 Sat by Pulse 98 Oximetry Medical Decision Making - Medical Decision Making 25-year-old male presents to the emergency department multiple chief complaints. On physical examination he does have abdominal cavity in tooth #15. She will be treated with Augmentin. examination is unremarkable. Ultrasound shows no acute findings of the scrotum. Urine drug screen positive for marijuana. EPS evaluation the patient and he will be discharged to [facility] because the patient currently lives in his vehicle. safety plan discussed. Case discussed with - Lab Data Lab Results 12/03/20 Range/Units 15:43 Urine Opiates Screen Not Detected (NotDetected) Ur Oxycodone Screen Not Detected (NotDetected) Urine Methadone Screen Not Detected (NotDetected) Ur Propoxyphene Screen Not Detected (NotDetected) Ur Barbiturates Screen Not Detected (NotDetected) U Tricyclic Antidepress Not Detected (NotDetected) Ur Phencyclidine Scrn Not Detected (NotDetected) Ur Amphetamines Screen Not Detected (NotDetected) U Methamphetamines Scrn Not Detected (NotDetected) U Benzodiazepines Scrn Not Detected (NotDetected) Urine Cocaine Screen Not Detected (NotDetected) U Marijuana (THC) Screen Detected H (NotDetected) Disposition Clinical Impression: Adjustment reaction of adult life, Pain, dental Disposition: HOME SELF-CARE Condition: Stable Instructions (If sedation given, give patient instructions): Toothache (ED) Additional Instructions: Take prescribed medication as directed. Follow-up with primary care physician. Please return to the Emergency Department if symptoms worsen or any other concerns. Prescriptions: Amoxicillin/Potassium Clav [Augmentin 875-125 Tablet] 1 tab PO Q12HR #20 tab Is patient prescribed a controlled substance at d/c from ED?: No Referrals: Mika Bah Jr, [Primary Care Provider] - 1-2 days Time of Disposition: 16:31
[2020-12-03] MEDS ORDERED: AMOXIC-POT CLAV 875-125MG 1 EACH TAB PO STA (14:12)
--- NOTE | 2020-12-03 15:00 | US ---
EXAMINATION TYPE: US scrotum with doppler. Grayscale and color Doppler Duplex imaging performed of t pelon scrotum. DATE OF EXAM: 12/03/2020 COMPARISON: NONE CLINICAL HISTORY: right testicular mass. Pain and lump EXAM MEASUREMENTS: TESTICLES: Right Testicle: 4.7 x 2.3 x 3.3 cm Left Testicle: 4.5 x 2.4 x 2.9 cm EPIDIDYMIS HEAD: Right Epididymis: .9 x .9 cm Left Epididymis: .8 cm Doppler performed to assess for testicular vascularity; good bilateral color flow and waveforms are s een. There is no evidence of testicular torsion. Presence of hydroceles: no Presence of varicoceles: no IMPRESSION: Normal exam. No evidence of testicular torsion or mass. No evidence of a varicocele.
[2020-12-03 15:56] LABS: Amphetamine Screen,Urine Not Detected (NotDetected); Barbiturate Screen,Urine Not Detected (NotDetected); Benzodiazepines Screen,Urine Not Detected (NotDetected); Cocaine Screen,Urine Not Detected (NotDetected); Methadone Screen, Urine Not Detected (NotDetected); Opiate Screen,Urine Not Detected (NotDetected); Oxycodone Screen, Urine Not Detected (NotDetected); Phencyclidine Screen,Urine Not Detected (NotDetected); Tricyclic Antidepressant,Urine Not Detected (NotDetected); Urn Cannabinoid Scrn Detected (NotDetected)
[2020-12-03 17:19] VITALS: BP 128/83; PULSE 75
== END 2020-12-03 17:18 | disposition home or self-care (01) ==
LOC: EC 13:42
DX: K02.9 Dental caries, unspecified (principal); F43.20 Adjustment disorder, unspecified; N50.811 Right testicular pain; F41.9 Anxiety disorder, unspecified; F31.9 Bipolar disorder, unspecified; F90.9 Attention-deficit hyperactivity disorder, unspecified type; F43.10 Post-traumatic stress disorder, unspecified; F17.200 Nicotine dependence, unspecified, uncomplicated; Z79.899 Other long term (current) drug therapy; Z88.5 Allergy status to narcotic agent; Z88.8 Allergy status to other drugs, medicaments and biological substances
CPT/HCPCS: 76870; 80306; 93975; 99284